=== PATIENT | female | born 1960 | race American Indian/Alaskan Native ===

== ENCOUNTER 2019-10-04 20:28 | Emergency (ER) | payer OTHER ==
[2019-10-04 20:50] VITALS: BP 157/79
== END 2019-10-04 22:15 | disposition home or self-care (01) ==
LOC: ED 20:28
DX: T78.49XA Other allergy, initial encounter (principal); R51 Headache; Z88.8 Allergy status to other drugs, medicaments and biological substances; Z79.899 Other long term (current) drug therapy; X58.XXXA Exposure to other specified factors, initial encounter
CPT/HCPCS: 96372; 99282; J1100

== ENCOUNTER 2020-05-03 12:58 | Emergency (ER) | payer BC, OTHER ==
[2020-05-03 13:57] VITALS: BP 160/84
--- NOTE | 2020-05-03 13:59 | Emergency Department Report ---
ED General Adult HPI - General Stated complaint: LT SHOULDER PAIN Time Seen by Provider: 05/03/20 13:55 - History of Present Illness Initial comments: 59-year-old -[place] female patient presents with complaints of left shoulder pain x1 week. She rates her pain as a 7/10 in severity and states it worsens with movement. Patient denies any chest pain, shortness of breath, difficulty moving her left shoulder. She states pain is relieved with i buprofen. No prior history of heart disease or family history of heart disease per patient. Also states some intermittent tingling in her left hand. - Related Data Previous Rx's Medication Instructions Recorded Last Taken Type predniSONE [Deltasone] 20 mg PO QDAY 5 Days #5 tab 10/04/19 Unknown Rx Naproxen 500 mg PO BID 7 Days #14 tablet 05/03/20 Unknown Rx methOCARBAMOL [Robaxin TAB] 1,000 mg PO TID PRN #20 tab 05/03/20 Unknown Rx Allergies Allergy/AdvReac Type Severity Reaction Status Date / Time lisinopril Allergy Unknown Verified 10/04/19 20:48 hair dye Allergy Swelling Uncoded 10/04/19 20:48 ED Review of Systems ROS: Stated complaint: LT SHOULDER PAIN Other details as noted in HPI Constitutional: denies: diaphoresis, fever, malaise, weakness Respiratory: denies: cough, shortness of breath Cardiovascular: denies: chest pain Gastrointestinal: denies: abdominal pain Musculoskeletal: denies: back pain Neurological: paresthesias. denies: headache, weakness, numbness ED Past Medical Hx - Past Medical History Hx Hypertension: Yes - Social History Smoking Status: Never Smoker Substance Use Type: None - Medications Home Medications: Home Medications Medication Instructions Recorded Confirmed Last Taken Type predniSONE [Deltasone] 20 mg PO QDAY 5 Days #5 tab 10/04/19 Unknown Rx Naproxen 500 mg PO BID 7 Days #14 tablet 05/03/20 Unknown Rx methOCARBAMOL [Robaxin TAB] 1,000 mg PO TID PRN #20 tab 05/03/20 Unknown Rx ED Physical Exam - General General appearance: alert, in no apparent distress - Head Head exam: Present: atraumatic, normocephalic - Eye Eye exam: Present: normal appearance. Absent: scleral icterus - ENT ENT exam: Present: mucous membranes moist - Neck Neck exam: Present: normal inspection, full ROM. Absent: tenderness - Respiratory Respiratory exam: Present: normal lung sounds bilaterally. Absent: respiratory distress - Cardiovascular Cardiovascular Exam: Present: regular rate, normal rhythm - Extremities Exam Extremities exam: Present: other (Tenderness to palpation noted over the left scapula without humeral head tenderness or obvious deformity; patient has full range of motion of the left shoulder and arm and hand; normal sensation and perfusion noted) - Back Exam Back exam: Present: full ROM - Neurological Exam Neurological exam: Present: alert, oriented X3, normal gait - Psychiatric Psychiatric exam: Present: normal affect, normal mood - Skin Skin exam: Present: warm, dry, intact, normal color. Absent: rash ED Course Vital Signs 05/03/20 13:26 Temperature 97.9 F Pulse Rate 73 Respiratory 16 Rate Blood Pressure 160/84 O2 Sat by Pulse 100 Oximetry ED Medical Decision Making - Medical Decision Making 59-year-old -[place] female patient presents with complaints of left shoulder pain x1 week. She rates her pain as a 7/10 in severity and states it worsens with movement. Patient denies any chest pain, shortness of breath, difficulty moving her left shoulder. She states pain is relieved with ibuprofen. No prior history of heart disease or family history of heart disease per patient. Also states some intermittent tingling in her left hand. X-ray is normal. Pain appears to be musculoskeletal in nature. Will treat conservatively with NSAIDs and muscle relaxers and rest. Recommend follow-up with her primary care doctor in 2 days. Discussed signs and symptoms that should prompt immediate return to the emergency department in detail with patient who verbalized understanding. Her vitals are normal, she is well- appearing, she is stable for discharge home. Critical care attestation.: If time is entered above; I have spent that time in minutes in the direct care of this critically ill patient, excluding procedure time. ED Disposition Clinical Impression: Acute pain of left shoulder Disposition: DC-01 TO HOME OR SELFCARE Is pt being admited?: No Condition: Stable Instructions: Shoulder Pain Prescriptions: Naproxen 500 mg PO BID 7 Days #14 tablet methOCARBAMOL [Robaxin TAB] 1,000 mg PO TID PRN #20 tab PRN Reason: muscle spasm/tightness Forms: Work/School Release Form(ED)
--- NOTE | 2020-05-03 14:28 | XRay Report ---
LEFT SHOULDER 3 VIEWS INDICATION / CLINICAL INFORMATION: Left shoulder pain. COMPARISON: None available. FINDINGS: BONES/JOINT(S): No acute fracture or subluxation. Mild DJD in the AC joint. No focal bone lesions. SOFT TISSUES: No significant abnormality. ADDITIONAL FINDINGS: None. Signer Name: Kyle Griffith MD Signed: 05/03/2020 2:24 PM Workstation Name: [id number]
== END 2020-05-03 16:40 | disposition home or self-care (01) ==
LOC: ED 12:58
DX: M25.512 Pain in left shoulder (principal); I10 Essential (primary) hypertension; Z79.899 Other long term (current) drug therapy; Z88.8 Allergy status to other drugs, medicaments and biological substances
CPT/HCPCS: 99283

== ENCOUNTER 2021-01-05 15:31 | Emergency (ER) | payer BC ==
[2021-01-05] MEDS ORDERED: ONDANSETRON 4 MG/2 ML INJ IV ONE (15:47)
[2021-01-05] MEDS ORDERED: MORPHINE 4 MG/1 ML INJ IV ONE (15:47)
[2021-01-05] MEDS ORDERED: SODIUM CHLORIDE 0.9% 1000 ML 1,000 ML IV ONE (15:47)
--- NOTE | 2021-01-05 16:18 | Emergency Department Report ---
ED Abdominal Pain HPI - General Chief Complaint: Abdominal Pain Stated Complaint: RECTAL PAIN Time Seen by Provider: 01/05/21 15:40 Source: patient Mode of arrival: Ambulatory Limitations: No Limitations - History of Present Illness Initial Comments: This is a 60-year-old female nontoxic, well nourished in appearance, no acute signs of distress presents to the ED with c/o of nausea, constipation, rectal pain, and abdominal pain several days. Patient denies any vomiting. Patient describes abdominal pain as cramping and aching with level of 3/10 primarily to lower bilateral abdomen. Patient denies chest pain, short of breath, fever, hemoptysis, blood in stool, chills, headache, stiff neck, numbness or tingling. Patient denies any diarrhea. Denies any blood in stool. Patient denies any recent travels. Patient stated allergies to lisinopril. MD Complaint: abdominal pain -: days(s) Location: LLQ, RLQ Radiation: none Migration to: no migration Severity: mild Severity scale (0 -10): 3 Quality: cramping Consistency: intermittent Improves With: nothing Worsens With: nothing Associated Symptoms: nausea, constipation. denies: vomiting, diarrhea, fever, chills, dysuria, hematemesis, hematochezia, melena, hematuria, anorexia, syncope - Related Data Previous Rx's Medication Instructions Recorded Last Taken Type predniSONE [Deltasone] 20 mg PO QDAY 5 Days #5 tab 10/04/19 Unknown Rx Naproxen 500 mg PO BID 7 Days #14 tablet 05/03/20 Unknown Rx methOCARBAMOL [Robaxin TAB] 1,000 mg PO TID PRN #20 tab 05/03/20 Unknown Rx Ondansetron [Zofran Odt] 4 mg PO Q12H PRN #12 tab.rapdis 01/05/21 Unknown Rx Allergies Allergy/AdvReac Type Severity Reaction Status Date / Time lisinopril Allergy Unknown Verified 01/05/21 15:36 hair dye Allergy Swelling Uncoded 01/05/21 15:36 ED Review of Systems ROS: Stated complaint: RECTAL PAIN Other details as noted in HPI Comment: All other systems reviewed and negative Constitutional: denies: chills, fever Eyes: denies: eye pain, eye discharge, vision change ENT: denies: ear pain, throat pain Respiratory: denies: cough, shortness of breath, wheezing Cardiovascular: denies: chest pain, palpitations Endocrine: no symptoms reported Gastrointestinal: abdominal pain, nausea, constipation. denies: vomiting, diarrhea, hematemesis, melena, hematochezia Genitourinary: denies: urgency, dysuria, discharge Musculoskeletal: denies: back pain, joint swelling, arthralgia Skin: denies: rash, lesions Neurological: denies: headache, weakness, paresthesias Psychiatric: denies: anxiety, depression Hematological/Lymphatic: denies: easy bleeding, easy bruising ED Past Medical Hx - Past Medical History Hx Hypertension: Yes - Social History Smoking Status: Never Smoker Substance Use Type: None - Medications Home Medications: Home Medications Medication Instructions Recorded Confirmed Last Taken Type predniSONE [Deltasone] 20 mg PO QDAY 5 Days #5 tab 10/04/19 Unknown Rx Naproxen 500 mg PO BID 7 Days #14 tablet 05/03/20 Unknown Rx methOCARBAMOL [Robaxin TAB] 1,000 mg PO TID PRN #20 tab 05/03/20 Unknown Rx Ondansetron [Zofran Odt] 4 mg PO Q12H PRN #12 tab.rapdis 01/05/21 Unknown Rx ED Physical Exam - General Limitations: No Limitations General appearance: alert, in no apparent distress - Head Head exam: Present: atraumatic, normocephalic - Eye Eye exam: Present: normal appearance - Neck Neck exam: Present: normal inspection, full ROM. Absent: tenderness, meningismus, lymphadenopathy - Respiratory Respiratory exam: Present: normal lung sounds bilaterally. Absent: respiratory distress, wheezes, rales, rhonchi, stridor, chest wall tenderness, accessory muscle use, decreased breath sounds, prolonged expiratory - Cardiovascular Cardiovascular Exam: Present: regular rate, normal rhythm, normal heart sounds. Absent: bradycardia, tachycardia, irregular rhythm, systolic murmur, diastolic murmur, rubs, gallop - GI/Abdominal GI/Abdominal exam: Present: soft, tenderness (bilateral lower abdominal area), normal bowel sounds. Absent: distended, guarding, rebound, rigid, diminished bowel sounds, organomegaly, mass, bruit, pulsatile mass - Rectal Rectal exam: Present: normal inspection, normal rectal tone, other (Theo Quijano RN present during exam). Absent: decreased rectal tone, heme (+) stool, black stool, bloody stool, fecal impaction, hemorrhoids, mass, tenderness - Extremities Exam Extremities exam: Present: normal inspection, full ROM, normal capillary refill. Absent: tenderness - Back Exam Back exam: Present: normal inspection, full ROM. Absent: tenderness, CVA tenderness (R), CVA tenderness (L), muscle spasm, paraspinal tenderness, vertebral tenderness, rash noted - Neurological Exam Neurological exam: Present: alert, oriented X3, normal gait - Psychiatric Psychiatric exam: Present: normal affect, normal mood - Skin Skin exam: Present: warm, dry, intact, normal color. Absent: rash ED Course Vital Signs 01/05/21 01/05/21 01/05/21 15:34 17:32 18:12 Temperature 97.8 F 98.1 F Pulse Rate 74 66 Respiratory 16 12 14 Rate Blood Pressure 146/88 Blood Pressure 176/88 [Left] O2 Sat by Pulse 100 100 Oximetry - Reevaluation(s) Reevaluation #1: 01/05/21 16:18 Patient is speaking in full sentences with no signs of distress noted. ED Medical Decision Making - Lab Data Result diagrams: 01/05/21 16:01 01/05/21 16:01 Lab Results 01/05/21 01/05/21 01/05/21 Range/Units 16:01 16:01 Unknown WBC 5.7 (4.5-11.0) K/mm3 RBC 4.15 (3.65-5.03) M/mm3 Hgb 12.1 (10.1-14.3) gm/dl Hct 36.5 (30.3-42.9) % MCV 88 (79-97) fl MCH 29 (28-32) pg MCHC 33 (30-34) % RDW 14.4 (13.2-15.2) % Plt Count 291 (140-440) K/mm3 Lymph % (Auto) 40.1 H (13.4-35.0) % [place] % (Auto) 9.0 H (0.0-7.3) % Eos % (Auto) 1.6 (0.0-4.3) % Baso % (Auto) 0.8 (0.0-1.8) % Lymph # (Auto) 2.3 (1.2-5.4) K/mm3 [place] # (Auto) 0.5 (0.0-0.8) K/mm3 Eos # (Auto) 0.1 (0.0-0.4) K/mm3 Baso # (Auto) 0.0 (0.0-0.1) K/mm3 Seg Neutrophils % 48.5 (40.0-70.0) % Seg Neutrophils # 2.7 (1.8-7.7) K/mm3 Sodium 143 (137-145) mmol/L Potassium 4.4 (3.6-5.0) mmol/L Chloride 107.1 H (98-107) mmol/L Carbon Dioxide 26 (22-30) mmol/L Anion Gap 14 mmol/L BUN 17 (7-17) mg/dL Creatinine 0.7 (0.6-1.2) mg/dL Estimated GFR > 60 ml/min BUN/Creatinine Ratio 24 % Glucose 94 (65-100) mg/dL Calcium 8.8 (8.4-10.2) mg/dL Total Bilirubin 0.20 (0.1-1.2) mg/dL AST 13 (5-40) units/L ALT 11 (7-56) units/L Alkaline Phosphatase 70 (35-129) units/L Total Protein 7.6 (6.3-8.2) g/dL Albumin 4.5 (3.9-5) g/dL Albumin/Globulin Ratio 1.5 % Lipase 23 (13-60) units/L Urine Color Straw (Yellow) Urine Turbidity Clear (Clear) Urine pH 6.0 (5.0-7.0) Ur Specific [place] 1.031 H (1.003-1.030) Urine Protein <15 mg/dl (Negative) mg/dL Urine Glucose (UA) Neg (Negative) mg/dL Urine Ketones Tr (Negative) mg/dL Urine Blood Neg (Negative) Urine Nitrite Neg (Negative) Urine Bilirubin Neg (Negative) Urine Urobilinogen < 2.0 (<2.0) mg/dL Ur Leukocyte Esterase Neg (Negative) Urine WBC (Auto) 1.0 (0.0-6.0) /HPF Urine RBC (Auto) 7.0 (0.0-6.0) /HPF Urine Bacteria (Auto) 1+ (Negative) /HPF Urine Mucus Few /HPF - Radiology Data [facility] [address] [place] [address] Cat Scan Report Signed Patient: GARO [place] MR#: [id number] : Acct:[id number] Age/Sex: 60 / F ADM Date: 01/05/21 Loc: ED Attending Dr: Ordering Physician: KENNETH LINDER NP Date of Service: 01/05/21 Procedure(s): CT abdomen pelvis w con Accession Number(s): [id number] cc: KENNETH LINDER NP CT ABDOMEN AND PELVIS WITH CONTRAST HISTORY: LOWER ABD RECTAL PAIN X2WKS [id number] 100ML. COMPARISON: None. TECHNIQUE: CT images of the abdomen and pelvis were obtained following administration of intravenous contrast. All CT scans at this location are performed using CT dose reduction for ALARA by means of automated exposure control. CONTRAST: 100 ml of intravenous contrast administered. FINDINGS: Lungs/bones: Lung bases are clear Abdomen/pelvis: There is a hypodensity within the right hepatic lobe measuring 1.6 cm. Liver is enlarged. There is diffuse fatty infiltration of the liver. There is mild thickening of the distal stomach wall and into the pylorus, nonspecific. Adrenal glands appear normal. Pancreatic duct is slightly prominent in the proximal pa ncreas and pancreatic head and uncinate process measuring 6 mm however no well- defined masses seen. Portal vein is patent. Gallbladder appears normal. Appendix appears normal. There is a low-density lesion within the right pelvis measuring 2.1 x 1.1 cm on axial image 105. This appears separate from the bowel loops. There is thickening of the distal sigmoid colon with thickening of the rectum. No well-defined masses definitely seen however there is some asymmetry to the rectal wall left greater than right. Urinary bladder appears normal. Aorta appears normal. No bowel obstruction is seen. IMPRESSION: 1. Thickening of the distal sigmoid colon with thickening of the rectum. There is some asymmetry normal left wall of the rectum. A follow-up with GI for colonoscopy and visualization to exclude rectal mass or malignancy is recommended. 2. Hypodense lesion within the right pelvic sidewall on the right measuring 1.1 x 2.1 cm. Fines could represent enlarged node. Follow-up recommended. 3. No bowel obstruction is seen. 4. Hypodense lesion within the right hepatic lobe measuring 1.6 cm. The liver is enlarged with heterogeneous throughout. Additional small hypodense lesion adjacent to the larger hypodense lesion is seen. Findings could represent a cyst however follow-up is recommended to exclude underlying liver lesion. Signer Name: Yousif Morfin MD Signed: 01/05/2021 6:51 PM Workstation Name: [id number] Transcribed By: FREDDY Dictated By: MAVERICK MORFIN MD Electronically Authenticated By: MAVERICK MORFIN MD Signed Date/Time: 01/05/211850 DD/ 45 TD/TT: - Medical Decision Making This is a 60-year-old female that presents with abdominal pain and nausea. Patient is stable and was examined by me. Labs obtained. UA obtained. CT of abdomen obtained and dictated by the radiologist. Patient is notified of the report with no questions noted by the patient. Vital signs are stable prior to discharge. Patient received medical treatment in the ED which patient stated symptoms has resovled and subsided. Was instructed note to operate any machinery due to possible drowsiness and stated someone will drive the patient home. A by mouth challenge has been obtained and patient tolerated well with no nausea vomiting. Patient was also instructed to Follow-up with a primary care and fast food attendant doctor in 3-5 days or if symptoms worsen and continue return to emergency room as soon as possible. At time of discharge, the patient does not seem toxic or ill in appearance. No acute signs of distress noted. Patient agrees to discharge treatment plan of care. No further questions noted by the patient. Critical care attestation.: If time is entered above; I have spent that time in minutes in the direct care of this critically ill patient, excluding procedure time. ED Disposition Clinical Impression: Nausea, Mass in rectum Abdominal pain, unspecified site Qualifiers: Abdominal location: lower abdomen, unspecified Qualified Code(s): R10.30 - Lower abdominal pain, unspecified Disposition: 01 HOME / SELF CARE / HOMELESS Is pt being admited?: No Does the pt Need Aspirin: No Condition: Stable Instructions: Abdominal Pain (ED) Additional Instructions: Follow-up with a primary care and fast food attendant doctor in 3-5 days or if symptoms worsen and continue return to emergency room as soon as possible. Prescriptions: Ondansetron [Zofran Odt] 4 mg PO Q12H PRN #12 tab.rapdis PRN Reason: Nausea Referrals: PRIMARY CARE,MD [Referring] - 3-5 Days MARLENY ALMONTE MD [Staff Physician] - 3-5 Days [facility] [Provider Group] - 3-5 Days Forms: Work/School Release Form(ED) Time of Disposition: 20:08
[2021-01-05 16:47] LABS: Basophils % (Auto) 0.8 % (0.0-1.8); Eosinophils # (Auto) 0.1 K/mm3 (0.0-0.4); Eosinophils % (Auto) 1.6 % (0.0-4.3); Hematocrit 36.5 % (30.3-42.9); Hemoglobin 12.1 gm/dl (10.1-14.3); Lymphocytes # (Auto) 2.3 K/mm3 (1.2-5.4); Lymphocytes % (Auto) 40.1 % (13.4-35.0); Mean Corpuscular HGB Conc 33 % (30-34); Mean Corpuscular Volume 88 fl (79-97); Monocytes # (Auto) 0.5 K/mm3 (0.0-0.8); Platelet Count 291 K/mm3 (140-440); Red Blood Count 4.15 M/mm3 (3.65-5.03); Red Cell Distribution Width 14.4 % (13.2-15.2)
[2021-01-05 17:01] LABS: Alanine Aminotransferase 11 units/L (7-56); Albumin 4.5 g/dL (3.9-5); BUN/Creatinine Ratio 24; Blood Urea Nitrogen 17 mg/dL (7-17); Calcium 8.8 mg/dL (8.4-10.2); Hemolysis Index 4
--- NOTE | 2021-01-05 18:55 | Cat Scan Report ---
CT ABDOMEN AND PELVIS WITH CONTRAST HISTORY: LOWER ABD & RECTAL PAIN X2WKS [id number] 100ML. COMPARISON: None. TECHNIQUE: CT images of the abdomen and pelvis were obtained following administration of intravenous contrast. All CT scans at this location are performed using CT dose reduction for ALARA by means of automated exposure control. CONTRAST: 100 ml of intravenous contrast administered. FINDINGS: Lungs/bones: Lung bases are clear Abdomen/pelvis: There is a hypodensity within the right hepatic lobe measuring 1.6 cm. Liver is enla rged. There is diffuse fatty infiltration of the liver. There is mild thickening of the distal stomac h wall and into the pylorus, nonspecific. Adrenal glands appear normal. Pancreatic duct is slightly p rominent in the proximal pancreas and pancreatic head and uncinate process measuring 6 mm however no well-defined masses seen. Portal vein is patent. Gallbladder appears normal. Appendix appears normal. There is a low-density lesion within the right pelvis measuring 2.1 x 1.1 cm on axial image 105. This appears separate from the bowel loops. There is thickening of the distal sigmoid colon with thickening of the rectum. No well-defined masses definitely seen however there is some asymmetry to the rectal wall left greater than right. Urinary bladder appears normal. Aorta appears normal. No bowel obstruction is seen. IMPRESSION: 1. Thickening of the distal sigmoid colon with thickening of the rectum. There is some asymmetry norm al left wall of the rectum. A follow-up with GI for colonoscopy and visualization to exclude rectal m ass or malignancy is recommended. 2. Hypodense lesion within the right pelvic sidewall on the right measuring 1.1 x 2.1 cm. Fines could represent enlarged node. Follow-up recommended. 3. No bowel obstruction is seen. 4. Hypodense lesion within the right hepatic lobe measuring 1.6 cm. The liver is enlarged with hetero geneous throughout. Additional small hypodense lesion adjacent to the larger hypodense lesion is seen . Findings could represent a cyst however follow-up is recommended to exclude underlying liver lesion . Signer Name: Yousif Morfin MD Signed: 01/05/2021 6:51 PM Workstation Name: [id number]
[2021-01-05 19:14] LABS: Bacteria,Urine 1+ /HPF (Negative); Bilirubin,Urine NEG (Negative); Blood,Urine NEG (Negative); Color,Urine Straw (Yellow); Mucus,Urine FEW /HPF; Protein,Urine <15 mg/dL mg/dL (Negative); Urobilinogen,Urine < 2.0 mg/dL (<2.0)
[2021-01-05 20:30] VITALS: BP 148/75
== END 2021-01-05 21:35 | disposition home or self-care (01) ==
LOC: ED 15:31
DX: K62.89 Other specified diseases of anus and rectum (principal); R11.0 Nausea; R10.30 Lower abdominal pain, unspecified; I10 Essential (primary) hypertension; Z88.8 Allergy status to other drugs, medicaments and biological substances; Z91.048 Other nonmedicinal substance allergy status
CPT/HCPCS: 36415; 74177; 80053; 81001; 83690; 85025; 96361; 96374; 96375; 99284; J2270; J2405; J7030; Q9967